=== PATIENT | female | born 1985 | race Caucasian/White ===

== ENCOUNTER 2017-02-03 20:01 | Emergency (ER) | payer BC ==
[2017-02-03] MEDS ORDERED: Sodium Chloride 0.9% 1,000 ML IV ONE (20:12)
[2017-02-03] MEDS ORDERED: Ondansetron 4 MG/2 ML SDV IVPUSH ONE (20:12)
--- NOTE | 2017-02-03 20:14 | EDM.PDOC ---
ED HPI GENERAL MEDICAL PROBLEM - General Chief Complaint: Abdominal Pain Stated Complaint: STOMACH PAIN Time Seen by Provider: 02/03/17 20:13 Source of Information: Reports: Patient - History of Present Illness INITIAL COMMENTS - FREE TEXT/NARRATIVE: HISTORY AND PHYSICAL: History of present illness: [Patient presents with 5 out of 10 right upper quadrant pain and vomiting with food today she is 11 weeks with IUP followed by Dr. zepeda Patient is in no distress she has no other symptomology such as fever chills sweats chest pain shortness breath headache dizziness or palpitation no bowel or urine symptoms Denies vaginal discharge bleeding or fluid leakage or spotting No low back pain ] Review of systems: As per history of present illness and below otherwise all systems reviewed and negative. Past medical history: As per history of present illness and as reviewed below otherwise noncontributory. Surgical history: As per history of present illness and as reviewed below otherwise noncontributory. Social history: No reported history of drug or alcohol abuse. Family history: As per history of present illness and as reviewed below otherwise noncontributory. Physical exam: HEENT: Atraumatic, normocephalic, pupils reactive, negative for conjunctival pallor or scleral icterus, mucous membranes moist, throat clear, neck supple, nontender, trachea midline. Lungs: Clear to auscultation, breath sounds equal bilaterally, chest nontender. Heart: S1S2, regular, negative for clicks, rubs, or JVD. Abdomen: Soft, nondistended, nontender. Negative for masses or hepatosplenomegaly. Negative for costovertebral tenderness. Pelvis: Stable nontender. Genitourinary: Deferred. Rectal: Deferred. Extremities: Atraumatic, negative for cords or calf pain. Neurovascular unremarkable. Neuro: Awake, alert, oriented. Cranial nerves II through XII unremarkable. Cerebellum unremarkable. Motor and sensory unremarkable throughout. Exam nonfocal. Diagnostics: []CBC, CMP, amylase lipase HCG Quant Therapeutics: []Liter normal saline bolus Zofran 8 mg IV Impression: Hyperemesis gravidarum Definitive disposition and diagnosis as appropriate pending reevaluation and review of above. Right Upper Abdomen Pain Score (Numeric/FACES): 6 - Related Data Allergies Allergy/AdvReac Type Severity Reaction Status Date / Time Penicillins Allergy Hives Verified 02/03/17 20:07 Home Meds: Home Meds Acetaminophen [Tylenol] 325 mg PO DAILY PRN 02/03/17 [History] Multivits,Ca,Minerals/Iron/FA [Women's Daily Formula Cap[place]] 1 tab PO DAILY [History] ED ROS GENERAL - Review of Systems Review Of Systems: ROS reveals no pertinent complaints other than HPI. ED EXAM, GENERAL - Physical Exam Exam: See Below Course - Vital Signs Last Recorded V/S: Last Vital Signs Temp 96.7 F 02/03/17 20:08 Pulse 83 02/03/17 20:08 Resp 20 02/03/17 20:08 BP 156/95 H 02/03/17 20:08 Pulse Ox 98 02/03/17 20:08 - Orders/Labs/Meds Orders: Active Orders 24 hr Category Date Time Status Heart Tones [ Heart Rate] [RC] Click to Edit Care 02/03/17 23:14 Active Abdomen Ltd [US] Stat Exams 02/03/17 21:39 Taken Labs: Laboratory Tests 02/03/17 02/03/17 02/03/17 Range/Units 20:21 20:21 20:21 WBC 11.61 H (4.0-11.0) K/uL RBC 4.94 (4.30-5.90) M/uL Hgb 14.4 (12.0-16.0) g/dL Hct 41.7 (36.0-46.0) % MCV 84.4 (80.0-98.0) fL MCH 29.1 (27.0-32.0) pg MCHC 34.5 (31.0-37.0) g/dL RDW Std Deviation 42.7 (28.0-62.0) fl RDW Coeff of Sarah 14 (11.0-15.0) % Plt Count 191 (150-400) K/uL MPV 10.30 (7.40-12.00) fL Neut % (Auto) 70.9 (48.0-80.0) % Lymph % (Auto) 22.0 (16.0-40.0) % [place] % (Auto) 5.8 (0.0-15.0) % Eos % (Auto) 1.1 (0.0-7.0) % Baso % (Auto) 0.2 (0.0-1.5) % Neut # (Auto) 8.2 H (1.4-5.7) K/uL Lymph # (Auto) 2.6 H (0.6-2.4) K/uL [place] # (Auto) 0.7 (0.0-0.8) K/uL Eos # (Auto) 0.1 (0.0-0.7) K/uL Baso # (Auto) 0.0 (0.0-0.1) K/uL Nucleated RBC % 0.0 /100WBC Nucleated RBCs # 0 K/uL Sodium 136 (136-146) mmol/L Potassium 3.7 (3.5-5.1) mmol/L Chloride 104 (98-110) mmol/L Carbon Dioxide 20 L (21-31) mmol/L BUN 7 (6.0-23.0) mg/dL Creatinine 0.6 (0.6-1.5) mg/dL Est Cr Clr Drug Dosing 146.91 mL/min Estimated GFR (MDRD) > 60.0 ml/min Glucose 105 (60-110) mg/dL Calcium 9.8 (8.8-10.8) mg/dL Total Bilirubin 0.5 (0.1-1.5) mg/dL AST 14 (5-40) IU/L ALT 23 (8-54) IU/L Alkaline Phosphatase 70 (40-150) Total Protein 7.9 (6.0-8.0) g/dL Albumin 4.0 (3.5-5.0) g/dL Globulin 3.9 H (2.0-3.5) g/dL Albumin/Globulin Ratio 1.0 L (1.3-2.8) Amylase 67 (10-90) U/L Lipase 13 (7-80) U/L HCG, Quant 02636.2 mIU/mL Urine Color Urine Appearance Urine pH (5.0-8.0) Ur Specific [place] (1.001-1.035) Urine Protein (NEGATIVE) mg/dL Urine Glucose (UA) (NEGATIVE) mg/dL Urine Ketones (NEGATIVE) mg/dL Urine Occult Blood (NEGATIVE) Urine Nitrite (NEGATIVE) Urine Bilirubin (NEGATIVE) Urine Ictotest Urine Urobilinogen (<2.0) EU/dL Ur Leukocyte Esterase (NEGATIVE) Urine RBC (0-2/HPF) Urine WBC (0-5/HPF) Ur Epithelial Cells (NONE-FEW) Amorphous Sediment (NEGATIVE) Urine Bacteria (NEGATIVE) 02/03/17 Range/Units 21:03 WBC (4.0-11.0) K/uL RBC (4.30-5.90) M/uL Hgb (12.0-16.0) g/dL Hct (36.0-46.0) % MCV (80.0-98.0) fL MCH (27.0-32.0) pg MCHC (31.0-37.0) g/dL RDW Std Deviation (28.0-62.0) fl RDW Coeff of Sarah (11.0-15.0) % Plt Count (150-400) K/uL MPV (7.40-12.00) fL Neut % (Auto) (48.0-80.0) % Lymph % (Auto) (16.0-40.0) % [place] % (Auto) (0.0-15.0) % Eos % (Auto) (0.0-7.0) % Baso % (Auto) (0.0-1.5) % Neut # (Auto) (1.4-5.7) K/uL Lymph # (Auto) (0.6-2.4) K/uL [place] # (Auto) (0.0-0.8) K/uL Eos # (Auto) (0.0-0.7) K/uL Baso # (Auto) (0.0-0.1) K/uL Nucleated RBC % /100WBC Nucleated RBCs # K/uL Sodium (136-146) mmol/L Potassium (3.5-5.1) mmol/L Chloride (98-110) mmol/L Carbon Dioxide (21-31) mmol/L BUN (6.0-23.0) mg/dL Creatinine (0.6-1.5) mg/dL Est Cr Clr Drug Dosing mL/min Estimated GFR (MDRD) ml/min Glucose (60-110) mg/dL Calcium (8.8-10.8) mg/dL Total Bilirubin (0.1-1.5) mg/dL AST (5-40) IU/L ALT (8-54) IU/L Alkaline Phosphatase (40-150) Total Protein (6.0-8.0) g/dL Albumin (3.5-5.0) g/dL Globulin (2.0-3.5) g/dL Albumin/Globulin Ratio (1.3-2.8) Amylase (10-90) U/L Lipase (7-80) U/L HCG, Quant mIU/mL Urine Color YELLOW Urine Appearance SLT CLOUDY Urine pH 6.0 (5.0-8.0) Ur Specific [place] >= 1.030 (1.001-1.035) Urine Protein 100 (NEGATIVE) mg/dL Urine Glucose (UA) NEGATIVE (NEGATIVE) mg/dL Urine Ketones 15 H (NEGATIVE) mg/dL Urine Occult Blood SMALL H (NEGATIVE) Urine Nitrite NEGATIVE (NEGATIVE) Urine Bilirubin SMALL H (NEGATIVE) Urine Ictotest NEGATIVE Urine Urobilinogen 0.2 (<2.0) EU/dL Ur Leukocyte Esterase NEGATIVE (NEGATIVE) Urine RBC 0-2 (0-2/HPF) Urine WBC 1-3 (0-5/HPF) Ur Epithelial Cells MODERATE (NONE-FEW) Amorphous Sediment LIGHT (NEGATIVE) Urine Bacteria FEW (NEGATIVE) Meds: Medications Discontinued Medications Generic Name Dose Route Start Last Admin Trade Name Freq PRN Reason Stop Dose Admin Sodium Chloride 1,000 mls @ 999 mls/hr 02/03/17 20:12 02/03/17 20:20 Normal Saline IV 02/03/17 21:12 999 mls/hr STAT ONE Administration Ondansetron HCl 8 mg 02/03/17 20:12 02/03/17 20:20 Zofran IVPUSH 02/03/17 20:13 8 mg ONETIME ONE Administration Departure - Departure Time of Disposition: 23:23 Disposition: Home, Self-Care 01 Condition: Good Clinical Impression: Hyperemesis gravidarum - Discharge Information Referrals: PCP,None [Primary Care Provider] - Forms: ED Department Discharge Additional Instructions: Medication as prescribed Fluid hydration techniques as discussed [place] diet Return if symptoms persist or worsen Follow-up with OB in 2 weeks sooner as needed The following information is given to patients seen in the emergency department who are being discharged to home. This information is to outline your options for follow-up care. We provide all patients seen in our emergency department with a follow-up referral. The need for follow-up, as well as the timing and circumstances, are variable depending upon the specifics of your emergency department visit. If you don't have a primary care physician on staff, we will provide you with a referral. We always advise you to contact your personal physician following an emergency department visit to inform them of the circumstance of the visit and for follow-up with them and/or the need for any referrals to a consulting specialist. The emergency department will also refer you to a specialist when appropriate. This referral assures that you have the opportunity for follow-up care with a specialist. All of these measure are taken in an effort to provide you with optimal care, which includes your follow-up. Under all circumstances we always encourage you to contact your private physician who remains a resource for coordinating your care. When calling for follow-up care, please make the office aware that this follow-up is from your recent emergency room visit. If for any reason you are refused follow-up, please contact the [facility] emergency department at and asked to speak to the emergency department charge nurse. - My Orders Last 24 Hours: My Active Orders 02/03/17 21:39 Abdomen Ltd [US] Stat 02/03/17 23:14 Heart Tones [ Heart Rate] [RC] Click to Edit - Assessment/Plan Last 24 Hours: My Active Orders 02/03/17 21:39 Abdomen Ltd [US] Stat 02/03/17 23:14 Heart Tones [ Heart Rate] [RC] Click to Edit
[2017-02-03 20:54] LABS: CHLORIDE,CL 104 mmol/L (98-110); SODIUM,NA 136 mmol/L (136-146)
--- NOTE | 2017-02-04 09:48 | US ---
EXAM DATE: 02/03/17 PATIENT'S AGE: 31 Patient: EDOUARD YOUNGER Facility: [place], [place] Site . Site : 1985 Study: US Abdomen [id number] 10:40:00 PM Ordering Physician: Jorge Don Final Report: HISTORY: Abdominal pain. TECHNIQUE: Limited abdominal ultrasound. COMPARISON: No prior. FINDINGS: Examination is limited by patient body habitus. Pancreatic tail is obscured by bowel gas. No abnormality involving the visualized portions of the pancreas. Liver size within normal limits. No focal liver mass. No biliary ductal dilatation. The extrahepatic bile duct measures 4 mm which is normal. Gallbladder is normal without sludge, stones wall thickening or pericholecystic fluid. Sonographic Martinez sign absent. Right kidney is poorly seen. No right- sided hydronephrosis. IMPRESSION: 1. Examination limited by patient body habitus. 2. Normal gallbladder. 3. No biliary ductal dilatation. Dictated by Elier Flor MD @ 02/03/2017 11:14:46 PM Dictated by: Elier Flor MD @ 02/03/2017 23:14:52 (Electronic Signature) Report Signed by Proxy. [facility]ITALTyrese
== END 2017-02-03 23:39 | disposition home or self-care (01) ==
LOC: MW.ED 20:01
DX: O21.0 Mild hyperemesis gravidarum (principal); Z3A.11 11 weeks gestation of pregnancy; Z88.0 Allergy status to penicillin; Z79.899 Other long term (current) drug therapy
CPT/HCPCS: 36415; 76705; 80053; 81001; 82150; 83690; 84702; 85025; 96361; 96374; 99284; J2405; J7040

== ENCOUNTER 2017-02-07 08:41 | Emergency (ER) | payer BC ==
[2017-02-07] MEDS ORDERED: Sodium Chloride 0.9% 2.5 ML Syringe FLUSH PRN (09:05)
[2017-02-07] MEDS ORDERED: Morphine 2 MG/ML Syringe IVPUSH ONE (09:05)
[2017-02-07] MEDS ORDERED: Ondansetron 4 MG/2 ML SDV IVPUSH ONE ×2 (09:05→13:39)
[2017-02-07] MEDS ORDERED: Sodium Chloride 0.9% 10 ML Syringe FLUSH PRN (09:05)
--- NOTE | 2017-02-07 09:06 | EDM.PDOC ---
ED HPI GENERAL MEDICAL PROBLEM - General Chief Complaint: General Stated Complaint: VOMITTING Time Seen by Provider: 02/07/17 08:44 Source of Information: Reports: Patient History Limitations: Reports: No Limitations - History of Present Illness INITIAL COMMENTS - FREE TEXT/NARRATIVE: History of present illness: []Patient is 12 weeks and has been vomiting profusely all night. Seen here this past weekend with gallbladder pain but an ultrasound showed no gallstones. She is scheduled to see a surgeon later this week and also have a HIDA scan. She has been taken Zofran up until last night when it stopped working. He denies upper abdominal pain but no lower abdominal pain. She denies any gross vaginal bleeding but states that when she wiped she saw brown on the tissue paper. Review of systems: As per history of present illness and below otherwise all systems reviewed and negative. Past medical history: As per history of present illness and as reviewed below otherwise noncontributory. Surgical history: As per history of present illness and as reviewed below otherwise noncontributory. Social history: No reported history of drug or alcohol abuse. Family history: As per history of present illness and as reviewed below otherwise noncontributory. Physical exam: General: Well developed, well nourished in NAD HEENT: Atraumatic, normocephalic, pupils reactive, negative for conjunctival pallor or scleral icterus, mucous membranes moist, throat clear, neck supple, nontender, trachea midline. Lungs: Clear to auscultation, breath sounds equal bilaterally, chest nontender. Heart: S1S2, regular, negative for clicks, rubs, or JVD. Abdomen: Soft, nondistended, tenderness in the upper abdomen without rebound or guarding. Negative for masses or hepatosplenomegaly. Negative for costovertebral tenderness. Pelvis: Stable nontender. Genitourinary: Deferred. Rectal: Deferred. Extremities: Atraumatic, negative for cords or calf pain. Neurovascular unremarkable. Neuro: Awake, alert, oriented. Cranial nerves II through XII unremarkable. Cerebellum unremarkable. Motor and sensory unremarkable throughout. Exam nonfocal. Diagnostics: []Labs a repeat abdominal ultrasound and OB ultrasounds showing mildly elevated common bile duct at 6 mm no gallstones or changes in the gallbladder wall and OB ultrasound shows a viable treated uterine . Therapeutics: []IV hydrated Zofran, Reglan, morphine and Dilaudid given while she is in the ER. A gram of Rocephin was given to the patient while ED. Impression: []Pancreatitis, 12 weeks OB, elevated LFTs. Plan: []Multiple attempts at transferring this patient after dilatation with OB, general surgery and the hospitalist here at this hospital failed and accepting physicians. Dr. Walker at [facility] in [facility] accepted to see this patient and will be admitted to their hospitalist Dr. Dhillon. At 11:30- Dr. Bergeron was contacted to consult, returned call at 1152 she recommended transferring patient out At 11:53-[facility] was contacted and I spoke with GI Dr. Cortés who would not accept this patient secondary to he only does ERCP with radiation and given this patient is 12 weeks it would behoove the patient to be transferred to a facility such as [facility] and do an EUS. At 1159 [facility] was contacted. Returned call at 13:33 I spoke with OB, GI and hospitalist there refused transfer stating that she more than likely just needs a medical workup and that doing an ERCP at 12 weeks would be too risky. At 14:13 [facility] [place] was contacted after several callbacks their surgeon, OB and track layer head refused transfer stated that they cannot do an ERCP in a patient. At 1432 our MRI department was contacted and stated they could do an MRCP at 7 PM tonight At 1440 Dr. Bergeron contacted again At 1452 [facility] was contacted and after 2 callbacks they excepted the patient 15:52 when they returned the call with Dr. Dhillon accepting. Family wanted to check insurance regarding ground versus flight expenses and spent time calling their insurance before agreeing transfer. At 1700 family consented for transfer At 1705 [employer] [facility] was dispatched Definitive disposition and diagnosis as appropriate pending reevaluation and review of above. Bilateral Middle Abdomen Pain Score (Numeric/FACES): 7 - Related Data Allergies Allergy/AdvReac Type Severity Reaction Status Date / Time Penicillins Allergy Hives Verified 02/07/17 08:49 Home Meds: Home Meds Acetaminophen [Tylenol] 325 mg PO DAILY PRN 02/03/17 [History] Multivits,Ca,Minerals/Iron/FA [Women's Daily Formula Caplet] 1 tab PO DAILY [History] Past Medical History HEENT History: Reports: None Cardiovascular History: Reports: None Respiratory History: Reports: None Gastrointestinal History: Reports: None Genitourinary History: Reports: None SPICE MILLER History: Reports: Other (See Below) Other OB/BYN History: D &C Musculoskeletal History: Reports: None Neurological History: Reports: None Psychiatric History: Reports: None Endocrine/Metabolic History: Reports: None Hematologic History: Reports: None Immunologic History: Reports: None Oncologic (Cancer) History: Reports: None Dermatologic History: Reports: None - Infectious Disease History Infectious Disease History: Reports: Chicken Pox - Past Surgical History Head Surgeries/Procedures: Reports: None HEENT Surgical History: Reports: Tonsillectomy, Other (See Below) Other HEENT Surgeries/Procedures: wisdom teeth Cardiovascular Surgical History: Reports: None Respiratory Surgical History: Reports: None GI Surgical History: Reports: None Female Surgical History: Reports: None Endocrine Surgical History: Reports: None Musculoskeletal Surgical History: Reports: None Social & Family History - Family History Family Medical History: Noncontributory - Tobacco Use Smoking Status *Q: Never Smoker - Caffeine Use Caffeine Use: Reports: None - Recreational Drug Use Recreational Drug Use: No ED ROS GENERAL - Review of Systems Review Of Systems: See Below (See history of present illness) ED EXAM, GENERAL - Physical Exam Exam: See Below (See history of present illness) Course - Vital Signs Last Recorded V/S: Last Vital Signs Temp 97.3 F 02/07/17 16:23 Pulse 65 02/07/17 16:23 Resp 18 02/07/17 16:23 BP 131/59 L 02/07/17 16:23 Pulse Ox 98 02/07/17 16:23 - Orders/Labs/Meds Orders: Active Orders 24 hr Category Date Time Status Abdomen wo Cont [MR] Stat Exams 02/07/17 15:58 Ordered CULTURE BLOOD [BC] Stat Lab 02/07/17 14:50 Received CULTURE BLOOD [BC] Stat Lab 02/07/17 15:00 Received MADDI-MARTIN VIRUS PCR, QNT B [REF] Routine Lab 02/07/17 09:39 Received HEPATITIS C AB [REF] Routine Lab 02/07/17 09:39 Received Sodium Chloride 0.9% [Normal Saline] 1,000 ml Med 02/07/17 14:30 Active IV ASDIRECTED Sodium Chloride 0.9% [Saline Flush] Med 02/07/17 09:05 Active 10 ml FLUSH ASDIRECTED PRN Sodium Chloride 0.9% [Saline Flush] Med 02/07/17 09:05 Active 2.5 ml FLUSH ASDIRECTED PRN Blood Culture x2 Reflex Set [OM.PC] Stat Ot 02/07/17 14:49 Ordered Saline Lock Insert [OM.PC] Stat Ot 02/07/17 09:05 Ordered Medication Orders Sodium Chloride (Normal Saline) 1,000 mls @ 250 mls/hr IV ASDIRECTED YARON Last Admin: 02/07/17 14:31 Dose: 250 mls/hr Sodium Chloride (Saline Flush) 10 ml FLUSH ASDIRECTED PRN PRN Reason: Keep Vein Open Last Admin: 02/07/17 09:21 Dose: 10 ml Sodium Chloride (Saline Flush) 2.5 ml FLUSH ASDIRECTED PRN PRN Reason: Keep Vein Open Last Admin: 02/07/17 09:21 Dose: 2.5 ml Labs: Laboratory Tests 02/07/17 02/07/17 02/07/17 Range/Units 09:39 09:39 09:39 WBC 13.12 H (4.0-11.0) K/uL RBC 4.93 (4.30-5.90) M/uL Hgb 14.2 (12.0-16.0) g/dL Hct 41.0 (36.0-46.0) % MCV 83.2 (80.0-98.0) fL MCH 28.8 (27.0-32.0) pg MCHC 34.6 (31.0-37.0) g/dL RDW Std Deviation 40.4 (28.0-62.0) fl RDW Coeff of Sarah 13 (11.0-15.0) % Plt Count 192 (150-400) K/uL MPV 10.30 (7.40-12.00) fL Neut % (Auto) 82.5 H (48.0-80.0) % Lymph % (Auto) 9.9 L (16.0-40.0) % [place] % (Auto) 7.5 (0.0-15.0) % Eos % (Auto) 0.0 (0.0-7.0) % Baso % (Auto) 0.1 (0.0-1.5) % Neut # (Auto) 10.8 H (1.4-5.7) K/uL Lymph # (Auto) 1.3 (0.6-2.4) K/uL [place] # (Auto) 1.0 H (0.0-0.8) K/uL Eos # (Auto) 0.0 (0.0-0.7) K/uL Baso # (Auto) 0.0 (0.0-0.1) K/uL Nucleated RBC % 0.0 /100WBC Nucleated RBCs # 0 K/uL Sodium 133 L (136-146) mmol/L Potassium 3.0 L (3.5-5.1) mmol/L Chloride 99 (98-110) mmol/L Carbon Dioxide 24 (21-31) mmol/L BUN 5 L (6.0-23.0) mg/dL Creatinine 0.6 (0.6-1.5) mg/dL Est Cr Clr Drug Dosing 146.91 mL/min Estimated GFR (MDRD) > 60.0 ml/min Glucose 121 H (60-110) mg/dL Calcium 9.9 (8.8-10.8) mg/dL Total Bilirubin 3.6 H (0.1-1.5) mg/dL Direct Bilirubin (0.0-0.5) mg/dL AST 242 H (5-40) IU/L ALT 257 H (8-54) IU/L Alkaline Phosphatase 189 H (40-150) Total Protein 7.7 (6.0-8.0) g/dL Albumin 3.8 (3.5-5.0) g/dL Globulin 3.9 H (2.0-3.5) g/dL Albumin/Globulin Ratio 1.0 L (1.3-2.8) Lipase (7-80) U/L HCG, Quant > 97750.0 mIU/mL Urine Color Urine Appearance Urine pH (5.0-8.0) Ur Specific [place] (1.001-1.035) Urine Protein (NEGATIVE) mg/dL Urine Glucose (UA) (NEGATIVE) mg/dL Urine Ketones (NEGATIVE) mg/dL Urine Occult Blood (NEGATIVE) Urine Nitrite (NEGATIVE) Urine Bilirubin (NEGATIVE) Urine Ictotest Urine Urobilinogen (<2.0) EU/dL Ur Leukocyte Esterase (NEGATIVE) Urine RBC (0-2/HPF) Urine WBC (0-5/HPF) Ur Epithelial Cells (NONE-FEW) Urine Bacteria (NEGATIVE) Urine Mucus (NONE-MOD) Monoscreen (NEG) Blood Type O POSITIVE 02/07/17 02/07/17 02/07/17 Range/Units 09:39 09:39 09:39 WBC (4.0-11.0) K/uL RBC (4.30-5.90) M/uL Hgb (12.0-16.0) g/dL Hct (36.0-46.0) % MCV (80.0-98.0) fL MCH (27.0-32.0) pg MCHC (31.0-37.0) g/dL RDW Std Deviation (28.0-62.0) fl RDW Coeff of Sarah (11.0-15.0) % Plt Count (150-400) K/uL MPV (7.40-12.00) fL Neut % (Auto) (48.0-80.0) % Lymph % (Auto) (16.0-40.0) % [place] % (Auto) (0.0-15.0) % Eos % (Auto) (0.0-7.0) % Baso % (Auto) (0.0-1.5) % Neut # (Auto) (1.4-5.7) K/uL Lymph # (Auto) (0.6-2.4) K/uL [place] # (Auto) (0.0-0.8) K/uL Eos # (Auto) (0.0-0.7) K/uL Baso # (Auto) (0.0-0.1) K/uL Nucleated RBC % /100WBC Nucleated RBCs # K/uL Sodium (136-146) mmol/L Potassium (3.5-5.1) mmol/L Chloride (98-110) mmol/L Carbon Dioxide (21-31) mmol/L BUN (6.0-23.0) mg/dL Creatinine (0.6-1.5) mg/dL Est Cr Clr Drug Dosing mL/min Estimated GFR (MDRD) ml/min Glucose (60-110) mg/dL Calcium (8.8-10.8) mg/dL Total Bilirubin (0.1-1.5) mg/dL Direct Bilirubin 2.8 H (0.0-0.5) mg/dL AST (5-40) IU/L ALT (8-54) IU/L Alkaline Phosphatase (40-150) Total Protein (6.0-8.0) g/dL Albumin (3.5-5.0) g/dL Globulin (2.0-3.5) g/dL Albumin/Globulin Ratio (1.3-2.8) Lipase 4385 H (7-80) U/L HCG, Quant mIU/mL Urine Color Urine Appearance Urine pH (5.0-8.0) Ur Specific [place] (1.001-1.035) Urine Protein (NEGATIVE) mg/dL Urine Glucose (UA) (NEGATIVE) mg/dL Urine Ketones (NEGATIVE) mg/dL Urine Occult Blood (NEGATIVE) Urine Nitrite (NEGATIVE) Urine Bilirubin (NEGATIVE) Urine Ictotest Urine Urobilinogen (<2.0) EU/dL Ur Leukocyte Esterase (NEGATIVE) Urine RBC (0-2/HPF) Urine WBC (0-5/HPF) Ur Epithelial Cells (NONE-FEW) Urine Bacteria (NEGATIVE) Urine Mucus (NONE-MOD) Monoscreen NEGATIVE (NEG) Blood Type 02/07/17 Range/Units 11:12 WBC (4.0-11.0) K/uL RBC (4.30-5.90) M/uL Hgb (12.0-16.0) g/dL Hct (36.0-46.0) % MCV (80.0-98.0) fL MCH (27.0-32.0) pg MCHC (31.0-37.0) g/dL RDW Std Deviation (28.0-62.0) fl RDW Coeff of Sarah (11.0-15.0) % Plt Count (150-400) K/uL MPV (7.40-12.00) fL Neut % (Auto) (48.0-80.0) % Lymph % (Auto) (16.0-40.0) % [place] % (Auto) (0.0-15.0) % Eos % (Auto) (0.0-7.0) % Baso % (Auto) (0.0-1.5) % Neut # (Auto) (1.4-5.7) K/uL Lymph # (Auto) (0.6-2.4) K/uL [place] # (Auto) (0.0-0.8) K/uL Eos # (Auto) (0.0-0.7) K/uL Baso # (Auto) (0.0-0.1) K/uL Nucleated RBC % /100WBC Nucleated RBCs # K/uL Sodium (136-146) mmol/L Potassium (3.5-5.1) mmol/L Chloride (98-110) mmol/L Carbon Dioxide (21-31) mmol/L BUN (6.0-23.0) mg/dL Creatinine (0.6-1.5) mg/dL Est Cr Clr Drug Dosing mL/min Estimated GFR (MDRD) ml/min Glucose (60-110) mg/dL Calcium (8.8-10.8) mg/dL Total Bilirubin (0.1-1.5) mg/dL Direct Bilirubin (0.0-0.5) mg/dL AST (5-40) IU/L ALT (8-54) IU/L Alkaline Phosphatase (40-150) Total Protein (6.0-8.0) g/dL Albumin (3.5-5.0) g/dL Globulin (2.0-3.5) g/dL Albumin/Globulin Ratio (1.3-2.8) Lipase (7-80) U/L HCG, Quant mIU/mL Urine Color DARK YELLOW Urine Appearance CLEAR Urine pH 6.0 (5.0-8.0) Ur Specific [place] 1.015 (1.001-1.035) Urine Protein NEGATIVE (NEGATIVE) mg/dL Urine Glucose (UA) NEGATIVE (NEGATIVE) mg/dL Urine Ketones >=80 (NEGATIVE) mg/dL Urine Occult Blood SMALL H (NEGATIVE) Urine Nitrite NEGATIVE (NEGATIVE) Urine Bilirubin MODERATE H (NEGATIVE) Urine Ictotest POSITIVE Urine Urobilinogen 2.0 H (<2.0) EU/dL Ur Leukocyte Esterase NEGATIVE (NEGATIVE) Urine RBC 0-1 (0-2/HPF) Urine WBC 0-1 (0-5/HPF) Ur Epithelial Cells RARE (NONE-FEW) Urine Bacteria RARE (NEGATIVE) Urine Mucus LIGHT (NONE-MOD) Monoscreen (NEG) Blood Type Meds: Medications Generic Name Dose Route Start Last Admin Trade Name Lauren PRN Reason Stop Dose Admin Sodium Chloride 1,000 mls @ 250 mls/hr 02/07/17 14:30 02/07/17 14:31 Normal Saline IV 250 mls/hr ASDIRECTED YARON Administration Sodium Chloride 10 ml 02/07/17 09:05 02/07/17 09:21 Saline Flush FLUSH 10 ml ASDIRECTED PRN Administration Keep Vein Open Sodium Chloride 2.5 ml 02/07/17 09:05 02/07/17 09:21 Saline Flush FLUSH 2.5 ml ASDIRECTED PRN Administration Keep Vein Open Discontinued Medications Generic Name Dose Route Start Last Admin Trade Name Lauren PRN Reason Stop Dose Admin Hydromorphone HCl 0.5 mg 02/07/17 15:36 02/07/17 15:43 Dilaudid IVPUSH 02/07/17 15:37 0.5 mg ONETIME ONE Administration Sodium Chloride 1,000 mls @ 999 mls/hr 02/07/17 09:18 02/07/17 09:21 Normal Saline IV 02/07/17 10:18 999 mls/hr .Bolus ONE Administration Sodium Chloride 1,000 mls @ 999 mls/hr 02/07/17 11:15 02/07/17 11:30 Normal Saline IV 02/07/17 12:15 999 mls/hr .Bolus ONE Administration Ceftriaxone Sodium/Dextrose 1 50 mls @ 100 mls/hr 02/07/17 16:05 02/07/17 16: 55 gm/ Premix IV 02/07/17 16:34 100 mls/hr ONETIME ONE Administration Morphine Sulfate 4 mg 02/07/17 09:05 02/07/17 09:21 Morphine IVPUSH 02/07/17 09:06 4 mg ONETIME ONE Administration Morphine Sulfate 4 mg 02/07/17 13:39 02/07/17 13:44 Morphine IVPUSH 02/07/17 13:40 4 mg ONETIME ONE Administration Ondansetron HCl 4 mg 02/07/17 09:05 02/07/17 09:21 Zofran IVPUSH 02/07/17 09:06 4 mg ONETIME ONE Administration Ondansetron HCl 4 mg 02/07/17 13:39 02/07/17 13:44 Zofran IVPUSH 02/07/17 13:40 4 mg ONETIME ONE Administration Potassium Chloride 40 meq 02/07/17 15:38 02/07/17 15:43 Klor-Con M20 PO 02/07/17 15:39 40 meq ONETIME ONE Administration Departure - Departure Time of Disposition: 17:10 Disposition: DC/Tfer to Acute Hospital 02 Condition: Fair Clinical Impression: Acute pancreatitis Qualifiers: Pancreatitis type: unspecified pancreatitis type Acute pancreatitis complication: unspecified Qualified Code(s): K85.90 - Acute pancreatitis without necrosis or infection, unspecified Qualifiers: Weeks of gestation: 12 weeks Qualified Code(s): Z3A.12 - 12 weeks gestation of - Discharge Information Referrals: PCP,None [Primary Care Provider] - Forms: ED Department Discharge Additional Instructions: The following information is given to patients seen in the emergency department who are being discharged to home. This information is to outline your options for follow-up care. We provide all patients seen in our emergency department with a follow-up referral. The need for follow-up, as well as the timing and circumstances, are variable depending upon the specifics of your emergency department visit. If you don't have a primary care physician on staff, we will provide you with a referral. We always advise you to contact your personal physician following an emergency department visit to inform them of the circumstance of the visit and for follow-up with them and/or the need for any referrals to a consulting specialist. The emergency department will also refer you to a specialist when appropriate. This referral assures that you have the opportunity for follow-up care with a specialist. All of these measure are taken in an effort to provide you with optimal care, which includes your follow-up. Under all circumstances we always encourage you to contact your private physician who remains a resource for coordinating your care. When calling for follow-up care, please make the office aware that this follow-up is from your recent emergency room visit. If for any reason you are refused follow-up, please contact the [facility] Emergency Department at and asked to speak to the emergency department charge nurse. - My Orders Last 24 Hours: My Active Orders 02/07/17 09:05 Sodium Chloride 0.9% [Saline Flush] 10 ml FLUSH ASDIRECTED PRN Sodium Chloride 0.9% [Saline Flush] 2.5 ml FLUSH ASDIRECTED PRN Saline Lock Insert [OM.PC] Stat 02/07/17 09:39 MADDI-MARTIN VIRUS PCR, QNT B [REF] Routine HEPATITIS C AB [REF] Routine 02/07/17 14:30 Sodium Chloride 0.9% [Normal Saline] 1,000 ml IV ASDIRECTED 02/07/17 14:49 Blood Culture x2 Reflex Set [OM.PC] Stat 02/07/17 14:50 CULTURE BLOOD [BC] Stat 02/07/17 15:00 CULTURE BLOOD [BC] Stat 02/07/17 15:58 Abdomen wo Cont [MR] Stat - Assessment/Plan Last 24 Hours: My Active Orders 02/07/17 09:05 Sodium Chloride 0.9% [Saline Flush] 10 ml FLUSH ASDIRECTED PRN Sodium Chloride 0.9% [Saline Flush] 2.5 ml FLUSH ASDIRECTED PRN Saline Lock Insert [OM.PC] Stat 02/07/17 09:39 MADDI-MARTIN VIRUS PCR, QNT B [REF] Routine HEPATITIS C AB [REF] Routine 02/07/17 14:30 Sodium Chloride 0.9% [Normal Saline] 1,000 ml IV ASDIRECTED 02/07/17 14:49 Blood Culture x2 Reflex Set [OM.PC] Stat 02/07/17 14:50 CULTURE BLOOD [BC] Stat 02/07/17 15:00 CULTURE BLOOD [BC] Stat 02/07/17 15:58 Abdomen wo Cont [MR] Stat
[2017-02-07] MEDS ORDERED: Sodium Chloride 0.9% 1,000 ML IV ONE ×2 (09:18→11:15)
[2017-02-07 10:45] LABS: CHLORIDE,CL 99 mmol/L (98-110); SODIUM,NA 133 mmol/L (136-146)
--- NOTE | 2017-02-07 13:13 | US ---
EXAMINATION: Upper quadrant ultrasound HISTORY: Increased LFTs COMPARISON: 02/03/2017 TECHNIQUE: Grayscale, and color Doppler images obtained of the right upper quadrant. FINDINGS: The pancreas is not optimally characterize, however the visualized portions appear normal. The liver is mildly increased in generalized echotexture without a focal hepatic mass. The gallbladde r wall thickness is normal. No pericholecystic fluid or shadowing gallstones. Non shadowing echogenic material noted within the gallbladder, likely sludge. Common bile duct measures 6 mm. Right kidney m easures at least 12.3 cm [id number] without evidence of hydronephrosis. Sonographic Martinez sign is not reported. IMPRESSION: 1. Mild fatty infiltration of the liver. 2. Common bile duct is borderline at 6 mm.
[2017-02-07] MEDS ORDERED: Morphine 4 MG/ML Syringe IVPUSH ONE (13:39)
[2017-02-07] MEDS ORDERED: Sodium Chloride 0.9% 1,000 ML IV SCH (14:30)
--- NOTE | 2017-02-07 14:59 | US ---
EXAMINATION: Transvaginal obstetric ultrasound HISTORY: Question COMPARISON: None TECHNIQUE: Grayscale, M-mode, and color Doppler images obtained. FINDINGS: There is a single live intrauterine noted. The placenta appears fundal. There is a trace fluid within the endocervical canal. The heart rate is 167 bpm. Tiny both thin cysts. Biparietal diameter measures 2 cm, head circumference measures 7.57 m, abdominal circumference measur es 6.5 cm, and the femoral length measures 1.1 cm. This gives an estimated gestational age of 13 week s and 2 days with an estimated date of delivery at 08/13/2017. Estimated weight is 71 g. Overall the fetus is within the 7th percentile, correlate with LMP. IMPRESSION: 1. Single live intrauterine . 2. Trace endocervical fluid likely secondary to a minimal subchorionic hemorrhage.
[2017-02-07] MEDS ORDERED: HYDROmorphone 1 MG/ML Syringe IVPUSH ONE ×2 (15:36→17:22)
[2017-02-07] MEDS ORDERED: Potassium Chloride 20 MEQ Tab.ER PO ONE (15:38)
[2017-02-07] MEDS ORDERED: cefTRIAXone 1 GM in Premix Bag 1 BAG IV ONE (16:05)
== END 2017-02-07 17:29 ==
LOC: MW.ED 08:41
DX: O99.611 Diseases of the digestive system complicating pregnancy, first trimester (principal); K85.90 Acute pancreatitis without necrosis or infection, unspecified; R79.89 Other specified abnormal findings of blood chemistry; Z88.0 Allergy status to penicillin; Z3A.12 12 weeks gestation of pregnancy
CPT/HCPCS: 36415; 76705; 76817; 80053; 81001; 82248; 83690; 84702; 85025; 86308; 86803; 86900; 86901; 87040; 87799; 96361; 96365; 96375; 96376; 99285; A9270; J0696; J1170; J2270; J2405; J7040

== ENCOUNTER 2017-08-24 04:48 | Inpatient (IN) | payer BC, OTHER ==
[2017-08-24] MEDS ORDERED: Tranexamic Acid 1,000 MG in Sodium Chloride 0.9% 100 ML IV PRN (06:18)
[2017-08-24] MEDS ORDERED: Lidocaine 1% 50 ML MDV INJECT PRN (06:18)
[2017-08-24] MEDS ORDERED: Nalbuphine 10 MG/1 ML Vial IVPUSH PRN (06:18)
[2017-08-24] MEDS ORDERED: Misoprostol 200 MCG Tab PO PRN (06:18)
[2017-08-24] MEDS ORDERED: Water For Irrigation,Sterile 1,000 ML Container IRR PRN (06:18)
[2017-08-24] MEDS ORDERED: Carboprost Tromethamine 250 MCG/1 ML Amp IM PRN (06:18)
[2017-08-24] MEDS ORDERED: Methylergonovine 0.2 MG/1 ML Amp IM PRN ×2 (06:18→09:06)
[2017-08-24] MEDS ORDERED: Sodium Chloride 0.9% 10 ML Syringe FLUSH PRN (06:18)
[2017-08-24] MEDS ORDERED: Sodium Chloride 0.9% 2.5 ML Syringe FLUSH PRN (06:18)
[2017-08-24] MEDS ORDERED: Butorphanol 1 MG/ML SDV IVPUSH PRN (06:18)
[2017-08-24] MEDS ORDERED: Lactated Ringers 1,000 ML IV SCH (06:30)
[2017-08-24] MEDS ORDERED: Oxytocin/0.9 % Sodium Chloride 30 UNIT/500 ML BAG IV SCH (06:30)
[2017-08-24] MEDS ORDERED: Ropivacaine 0.2% 2 MG/ML 20 ML SDV ONE (07:22)
--- NOTE | 2017-08-24 09:02 | PCM.DEL ---
L & D Note - General Info Date of Service: 08/24/17 Mother's Due Date: 08/21/17 - Delivery Note Labor: Spontaneous Delivery Outcome: Livebirth Infant Delivery Method: Spontaneous Vaginal Delivery-Single Presentation: Right Occiput Anterior (MOSES) Nuchal Cord: None Prep: Other Anesthesia Type: Other (see below) (pudendal block) Anesthetic: Lidocaine (Xylocaine) 1% Plain Local Anesthetic Volume: Other (10 ml) Amniotic Fluid Description: Meconium Stained Episiotomy Type: None Laceration: 2nd Degree Suture type: Vicryl Suture size: 3-0 Placenta: Intact, Spontaneous Cord: 3 Vessels Resuscitation Needed: Yes [place]: Suctioned, Stimulated, Warmed, Warmer Used Provider: Celio Gil Score 1 min: 8 Score 5 min: 8 Second Stage Interventions: Reports: Pushing, McRobert's Position (male "Wade " 3590 grams.), Pushing, Pulls Own Legs Back - General Info Date of Service: 08/24/17 - Patient Data Weight - Most Recent: 169.19 kg Lab Results Last 24 Hours: Laboratory Results - last 24 hr 08/24/17 08/24/17 Range/Units 06:48 06:48 WBC 15.42 H (4.0-11.0) K/uL RBC 4.82 (4.30-5.90) M/uL Hgb 13.3 (12.0-16.0) g/dL Hct 40.2 (36.0-46.0) % MCV 83.4 (80.0-98.0) fL MCH 27.6 (27.0-32.0) pg MCHC 33.1 (31.0-37.0) g/dL RDW Std Deviation 46.0 (28.0-62.0) fl RDW Coeff of Sarah 15 (11.0-15.0) % Plt Count 181 (150-400) K/uL MPV 10.60 (7.40-12.00) fL Nucleated RBC % 0.0 /100WBC Nucleated RBCs # 0 K/uL Blood Type O POSITIVE Antibody Screen NEGATIVE Med Orders - Current: Current Medications Butorphanol Tartrate (Stadol) 1 mg IVPUSH ASDIRECTED PRN PRN Reason: Pain Carboprost Tromethamine (Hemabate Ds) 250 mcg IM ASDIRECTED PRN PRN Reason: Post Hemorrhage Tranexamic Acid 1,000 mg/ (Sodium Chloride) 110 mls @ 660 mls/hr IV ONETIME PRN PRN Reason: Bleeding Lactated Ringer's (Ringers, Lactated) 1,000 mls @ 150 mls/hr IV ASDIRECTED [facility] Last Admin: 08/24/17 07:05 Dose: 150 mls/hr Oxytocin/Sodium Chloride (Oxytocin 30 Unit/500 Ml-Ns) 30 unit in 500 mls @ 999 mls/hr IV TITRATE [facility] Last Admin: 08/24/17 07:51 Dose: 999 mls/hr Lidocaine HCl (Xylocaine 1%) 50 ml INJECT .ONCE PRN PRN Reason: Laceration repair Methylergonovine Maleate (Methergine) 0.2 mg IM ASDIRECTED PRN PRN Reason: Post Hemorrhage Misoprostol (Cytotec) 200 mcg PO .ONCE PRN PRN Reason: Post Hemorrhage Nalbuphine HCl (Nubain) 10 mg IVPUSH ASDIRECTED PRN PRN Reason: Pain (severe 7-10) Sodium Chloride (Saline Flush) 10 ml FLUSH ASDIRECTED PRN PRN Reason: Keep Vein Open Sodium Chloride (Saline Flush) 2.5 ml FLUSH ASDIRECTED PRN PRN Reason: Keep Vein Open Sterile Water (Sterile Water For Irrigation) 1,000 ml IRR ASDIRECTED PRN PRN Reason: delivery Last Admin: 08/24/17 08:51 Dose: 1,000 ml Discontinued Medications Fentanyl/Bupivacaine HCl (Najzgnvf-Qqxom-Uz 2 Mcg/Ml-0.125%) Confirm Administered Dose 100 mls @ as directed EP .[facility] ONE Stop: 08/24/17 07:23 Ropivacaine (Naropin 0.2%) Confirm Administered Dose 20 ml .ROUTE .[facility] ONE Stop: 08/24/17 07:23 - Problem List & Annotations (1) Vaginal delivery SNOMED Code(s): 191887686 Code(s): O80 - ENCOUNTER FOR FULL-TERM UNCOMPLICATED DELIVERY Status: Acute Current Visit: Yes - Problem List Review Problem List Initiated/Reviewed/Updated: Yes - My Orders Last 24 Hours: My Active Orders 08/24/17 05:36 Patient Status [ADT] Routine Non Stress Test [RC] PER UNIT ROUTINE Up ad Lazara [RC] ASDIRECTED Vaginal Exam [RC] Click to Edit Vital Signs [RC] PER UNIT ROUTINE Resuscitation Status Routine 08/24/17 06:18 Butorphanol [Stadol] 1 mg IVPUSH ASDIRECTED PRN Carboprost Tromethamine [Hemabate DS] 250 mcg IM ASDIRECTED PRN Lidocaine 1% [Xylocaine 1%] 50 ml INJECT .ONCE PRN Methylergonovine [Methergine] 0.2 mg IM ASDIRECTED PRN Misoprostol [Cytotec] 200 mcg PO .ONCE PRN Nalbuphine [Nubain] 10 mg IVPUSH ASDIRECTED PRN Sodium Chloride 0.9% [Saline Flush] 10 ml FLUSH ASDIRECTED PRN Sodium Chloride 0.9% [Saline Flush] 2.5 ml FLUSH ASDIRECTED PRN Tranexamic Acid [Cyklokapron] 1,000 mg Sodium Chloride 0.9% [Normal Saline] 100 ml IV ONETIME Water For Irrigation,Sterile [Sterile Water for Irrigation] 1,000 ml IRR ASDIRECTED PRN 08/24/17 06:19 Patient Status [ADT] Routine Heart Tones [RC] CONTINUOUS Non Stress Test [RC] PER UNIT ROUTINE May Shower [RC] ASDIRECTED Notify Provider [RC] PRN Up ad Lazara [RC] ASDIRECTED Vaginal Exam [RC] PRN Vital Signs [RC] PER UNIT ROUTINE Scalp Electrode [WOMSER] Per Unit Routine Peripheral IV Insertion Adult [OM.PC] Routine 08/24/17 06:30 Lactated Ringers [Ringers, Lactated] 1,000 ml IV ASDIRECTED Oxytocin/0.9 % Sodium Chloride [Oxytocin 30 Unit/500 ML-NS] 30 unit in 500 ml IV TITRATE 08/24/17 Lunch Regular Diet [DIET]
[2017-08-24] MEDS ORDERED: Benzocaine/Menthol 20%-0.5% Spray 78 GM Cannister TOP PRN (09:06)
[2017-08-24] MEDS ORDERED: Ibuprofen 400 MG Tab PO PRN (09:06)
[2017-08-24] MEDS ORDERED: Acetaminophen 500 MG Tab PO PRN ×2 (09:06)
[2017-08-24] MEDS ORDERED: Witch Hazel Medicated Pads 40/Jar TOP PRN (09:06)
[2017-08-24] MEDS ORDERED: Bisacodyl 10 MG Supp RECTAL PRN (09:06)
[2017-08-24] MEDS ORDERED: Lanolin 100% Cream 7 GM Tube TOP PRN (09:06)
[2017-08-24] MEDS: Ibuprofen 800 MG Tab PO PRN ×2 (09:23→15:39)
[2017-08-24] MEDS: Docusate Sodium 100 MG Cap PO PRN ×2 (09:24→15:40)
--- NOTE | 2017-08-24 13:04 | OR ---
SURGEON: Yesi Islas M.D. DATE OF PROCEDURE: 08/24/2017 PREOPERATIVE DIAGNOSES: 1. 40 and 3/7 week intrauterine . 2. Active spontaneous labor. POSTOPERATIVE DIAGNOSES: 1. 40 and 3/7 week intrauterine . 2. Active spontaneous labor. PROCEDURE: Term spontaneous vaginal delivery with repair of second-degree laceration. ANESTHESIA: Pudendal and local. ESTIMATED BLOOD LOSS: Less than 300 mL. FINDINGS: Live born male, score 8 and 8, weighing 3590 g. COMPLICATIONS: None known. DISPOSITION: Mother and baby are stable in recovery in good condition. BRIEF HISTORY: This is a 32-year-old female, she is G1, P0. She presents at 40 and 3/7 weeks' gestation in active spontaneous labor. She has had uncomplicated care except for first trimester laparoscopic cholecystectomy, morbid obesity, and history of herpes. Currently, on Valtrex without any symptoms. She is group B strep negative. She presented to Labor and Delivery 4 to 5 cm dilated. She was observed, she quickly changed to 7 to 8 cm dilation. Anesthesia was called for epidural; however, upon their arrival, she was complete with the urge to push; therefore, epidural was not performed. DESCRIPTION OF PROCEDURE: With the patient in dorsal lithotomy position, the perineum and vagina were prepped with chlorhexidine and draped in usual fashion for a vaginal delivery. A pudendal block was then performed injecting a total of 10 mL of 1% lidocaine, 1 cm medial and inferior to the spinous process on the right and left. This being complete, she had good loss of sphincter reflux. She continued to push to a 5+ station at which time, the head was delivered spontaneously and atraumatically over the perineum with support. The infant was bulb suctioned on the perineum and the nuchal cord was reduced. There was subsequent delivery of the infant's shoulders and body without any difficulty. The infant was further bulb suctioned by nose and mouth. Dr. Gil had been called for delivery as there was thick meconium at the time of rupture of membranes, which occurred when the patient was pushing. The was a liveborn male, score 8 and 8, weighing 3590 g. Cord blood was collected for cord ABGs as well as routine cord blood sampling. Pitocin was initiated after delivery of the to assist with delivery of the placenta, which was delivered spontaneously. Schultze intact with 3 vessels. Upon inspection of the pelvis and perineum, there was a second-degree perineal laceration. No vaginal sidewall, cervical, or rectal lacerations. EBL was less than 300 mL. The perineal laceration was repaired using a running locked suture of 3-0 Vicryl for the vaginal mucosa, a deep running suture of the perineum using the same suture, and a running subcuticular suture with Vicryl for the skin. Final sponge, needle, and instrument count were correct. There were no known complications. Mother and baby are in LDRP in good condition. MARKUS / GAIL /[id number]
--- NOTE | 2017-08-24 19:51 | PCM48HPAN ---
Post Anesthesia Note - EVALUATION WITHIN 48HRS OF ANESTHETIC Vital Signs in Normal Range: Yes Patient Participated in Evaluation: Yes Respiratory Function Stable: Yes Airway Patent: Yes Cardiovascular Function Stable: Yes Hydration Status Stable: Yes Pain Control Satisfactory: Yes Nausea and Vomiting Control Satisfactory: Yes Mental Status Recovered: Yes Resp Rate: 18
[2017-08-25] MEDS: Ibuprofen 800 MG Tab PO PRN ×2 (00:20→09:09)
[2017-08-25] MEDS: oxyCODONE 5 MG Tab PO PRN ×2 (00:22→09:10)
--- NOTE | 2017-08-25 08:49 | PCM.PNPP ---
- General Info Date of Service: 08/25/17 Functional Status: Reports: Pain Controlled, Tolerating Diet, Ambulating, Urinating - Review of Systems General: Denies: Fever, Weakness, Chills HEENT: Denies: Headaches Pulmonary: Denies: Shortness of Breath, Pleuritic Chest Pain Cardiovascular: Denies: Chest Pain, Palpitations, Dyspnea on Exertion Gastrointestinal: Denies: Abdominal Pain Genitourinary: Denies: Dysuria, Urgency, Incontinence Psychiatric: Denies: Confusion, Depression, Mood Lability, Anxiety - General Info Date of Service: 08/25/17 - Patient Data Vital Signs - Most Recent: Last Vital Signs Temp 36.7 C 08/25/17 07:59 Pulse 85 08/25/17 07:59 Resp 15 08/25/17 07:59 BP 145/71 H 08/25/17 07:59 Pulse Ox 98 08/25/17 07:59 Weight - Most Recent: 373 lb Lab Results - Last 24 Hours: Laboratory Results - last 24 hr 08/24/17 08/25/17 Range/Units 09:51 06:28 Hgb 11.4 L (12.0-16.0) g/dL Hct 35.2 L (36.0-46.0) % Cord ABG pH 7.198 (7.18-7.38) Cord ABG Base Excess -6 (-10--2) Cord VBG pH 7.257 (7.25-7.45) Cord VBG Base Excess -5 (-10--2) Med Orders - Current: Current Medications Acetaminophen (Tylenol Extra Strength) 500 mg PO Q4H PRN PRN Reason: Pain Acetaminophen (Tylenol Extra Strength) 1,000 mg PO Q4H PRN PRN Reason: Pain Last Admin: 08/24/17 15:40 Dose: 1,000 mg Benzocaine/Menthol (Dermoplast Pain Relief 20%-0.5% [place]) 78 gm TOP ASDIRECTED PRN PRN Reason: Perineal Comfort Measure Last Admin: 08/24/17 09:25 Dose: 78 gm Bisacodyl (Dulcolax) 10 mg RECTAL .ONCE PRN PRN Reason: Constipation Docusate Sodium (Colace) 100 mg PO BID PRN PRN Reason: Constipation Last Admin: 08/24/17 15:40 Dose: 100 mg Emollient Ointment (Lansinoh Hpa) 0 gm TOP ASDIRECTED PRN PRN Reason: Sore Nipples Last Admin: 08/24/17 09:25 Dose: 7 gm Ibuprofen (Motrin) 400 mg PO Q4H PRN PRN Reason: Pain Ibuprofen (Motrin) 800 mg PO Q6H PRN PRN Reason: Pain Last Admin: 08/25/17 00:20 Dose: 800 mg Methylergonovine Maleate (Methergine) 0.2 mg IM .ONCE PRN PRN Reason: Excessive Vaginal Bleeding Oxycodone HCl (Oxycodone) 5 mg PO Q2H PRN PRN Reason: Pain Last Admin: 08/25/17 00:22 Dose: 5 mg Witch Hilda (Tucks) 1 pad TOP ASDIRECTED PRN PRN Reason: comfort care Last Admin: 08/24/17 09:26 Dose: 1 pad Discontinued Medications Butorphanol Tartrate (Stadol) 1 mg IVPUSH ASDIRECTED PRN PRN Reason: Pain Carboprost Tromethamine (Hemabate Ds) 250 mcg IM ASDIRECTED PRN PRN Reason: Post Hemorrhage Tranexamic Acid 1,000 mg/ (Sodium Chloride) 110 mls @ 660 mls/hr IV ONETIME PRN PRN Reason: Bleeding Lactated Ringer's (Ringers, Lactated) 1,000 mls @ 150 mls/hr IV ASDIRECTED [facility] Last Admin: 08/24/17 07:05 Dose: 150 mls/hr Oxytocin/Sodium Chloride (Oxytocin 30 Unit/500 Ml-Ns) 30 unit in 500 mls @ 999 mls/hr IV TITRATE [facility] Last Admin: 08/24/17 07:51 Dose: 999 mls/hr Fentanyl/Bupivacaine HCl ([id number]-Fokvu-Aq 2 Mcg/Ml-0.125%) Confirm Administered Dose 0 mls @ as directed EP .[facility]-MED ONE Stop: 08/24/17 07:23 Lidocaine HCl (Xylocaine 1%) 50 ml INJECT .ONCE PRN PRN Reason: Laceration repair Methylergonovine Maleate (Methergine) 0.2 mg IM ASDIRECTED PRN PRN Reason: Post Hemorrhage Misoprostol (Cytotec) 200 mcg PO .ONCE PRN PRN Reason: Post Hemorrhage Nalbuphine HCl (Nubain) 10 mg IVPUSH ASDIRECTED PRN PRN Reason: Pain (severe 7-10) Ropivacaine (Naropin 0.2%) Confirm Administered Dose 20 ml .ROUTE .STK-MED ONE Stop: 08/24/17 07:23 Sodium Chloride (Saline Flush) 10 ml FLUSH ASDIRECTED PRN PRN Reason: Keep Vein Open Sodium Chloride (Saline Flush) 2.5 ml FLUSH ASDIRECTED PRN PRN Reason: Keep Vein Open Sterile Water (Sterile Water For Irrigation) 1,000 ml IRR ASDIRECTED PRN PRN Reason: delivery Last Admin: 08/24/17 08:51 Dose: 1,000 ml - Interaction Disposition, : [place] to Nursery Infant Feeding: Attempted ; Nursed Fair/Poor, Continues to Breastfeed, Encouraged to Breastfeed Support Person: - Recovery Exam Fundal Tone: Firm Fundal Level: At Umbilicus Fundal Placement: Midline Lochia Amount: Scant Lochia Color: Rubra/Red Perineum Description: Intact, Minimal Bruising/Swelling Other Perinuem Description: 2nd degree laceration Episiotomy/Laceration: Approximated Bladder Status: Voiding Urinary Elimination: Voided - Exam General: Alert, Oriented Lungs: Clear to Auscultation, Normal Respiratory Effort Cardiovascular: Regular Rate, Regular Rhythm GI/Abdominal Exam: Soft, Non-Tender Extremities: Non-Tender, Pedal Edema Neurological: No New Focal Deficit Psy/Mental Status: Alert, Normal Affect, Normal Mood - Problem List & Annotations (1) Vaginal delivery SNOMED Code(s): 322331060 Code(s): O80 - ENCOUNTER FOR FULL-TERM UNCOMPLICATED DELIVERY Status: Acute Current Visit: Yes - Problem List Review Problem List Initiated/Reviewed/Updated: Yes - Assessment Assessment:: PPD31 s/p , stable and afebrile - Plan Plan:: Discharge instructions reviewed Bleeding and infection precautions reviewed Nothing in the vagina for 6 weeks Continue PNV whilst breast feeding May use OTC pain meds as needed S/S of blues vs depression were reviewed and precautions discussed Follow up in 6 weeks in [facility]
== END 2017-08-25 14:30 | disposition home or self-care (01) | DRG 560 ==
LOC: MW.OBCHECK 04:48 → MW.OB 04:51 → MW.OBCHECK 06:19 → MW.OB 06:19 → OBSVTOIN 07:51 → MW.OB 17:36
PROVIDERS: ADMIT Obstetrics & Gynecology; ATTEND Obstetrics & Gynecology
PROC: 10E0XZZ Delivery of Products of Conception, External Approach (ICD-10-PCS; principal; 2017-08-24)
PROC: 0KQM0ZZ Repair Perineum Muscle, Open Approach (ICD-10-PCS; 2017-08-24)
DX: O70.1 Second degree perineal laceration during delivery (principal); O99.214 Obesity complicating childbirth; E66.01 Morbid (severe) obesity due to excess calories; O77.0 Labor and delivery complicated by meconium in amniotic fluid; O69.1XX0 Labor and delivery complicated by cord around neck, with compression, not applicable or unspecified; O98.32 Other infections with a predominantly sexual mode of transmission complicating childbirth; Z68.43 Body mass index [BMI] 50.0-59.9, adult; Z3A.40 40 weeks gestation of pregnancy; Z37.0 Single live birth
CPT/HCPCS: 36415; 59025; 59409; 82803; 85014; 85018; 85027; 86850; 86900; 86901; A9270-GY; J2590; J7120